=== PATIENT | female | born 1975 | race Asian ===

== ENCOUNTER 2016-07-05 10:55 | Emergency (ER) | payer BC ==
[~2016-07-05] VITALS: Ht 152.4 cm; Wt 51.3 kg
[2016-07-05] MEDS ORDERED: DIAZEPAM5 MG ORAL (11:14)
[2016-07-05] MEDS ORDERED: RAMIPRIL2.5 MG ORAL (11:14)
[2016-07-05] MEDS ORDERED: OXYCODONE-ACET1 EAC3 ORAL (11:14)
[2016-07-05] MEDS ORDERED: IBUPROFEN600 MG ORAL (11:14)
[2016-07-05] MEDS ORDERED: KETOROLAC TROME10 MG PO (11:14)
[2016-07-05] MEDS ORDERED: Ketorolac 30mg Inj IV ONE (11:30)
[2016-07-05] MEDS ORDERED: Morphine Sulfate 4mg/ml Inj IVP ONE ×2 (11:30→15:30)
[2016-07-05] MEDS ORDERED: Tubing IV Cassette IV ONE (11:44)
[2016-07-05 11:53] LABS: APPEARANCE,URINE CLEAR; KETONES,URINE NEGATIVE (NEGATIVE); LEUKOCYTE ESTERASE ,URINE NEGATIVE (NEGATIVE); NITRITE,URINE NEGATIVE (NEGATIVE); PH,URINE 8 (4.5-8.0); PROTEIN,URINE NEGATIVE (NEGATIVE); UROBILINOGEN,URINE NORMAL MG/DL (0.0-1.0)
[2016-07-05 11:54] LABS: BASOPHILS % (AUTO) 0.9 % (0.0-2.0); EOSINOPHILS % (AUTO) 6.6 % (0.0-3.0); LYMPHOCYTES % (AUTO) 21.6 % (20.0-45.0); MEAN CORPUSCULAR HEMOGLOBIN 30.7 PG (27.0-31.0); MEAN CORPUSCULAR HGB CONC 33.9 G/DL (32.0-36.0); MEAN CORPUSCULAR VOLUME 90 FL (80-99); MEAN PLATELET VOLUME 9.5 FL (6.5-10.1); MONOCYTES % (AUTO) 6.1 % (1.0-10.0); NEUTROPHILS % (AUTO) 64.8 % (45.0-75.0); PLATELET COUNT 283 K/UL (150-450); RED BLOOD COUNT 4.39 M/UL (4.20-5.40); RED CELL DISTRIBUTION WIDTH 10.8 % (11.6-14.8); WHITE BLOOD COUNT 10.1 K/UL (4.8-10.8)
[2016-07-05 12:07] LABS: INR 0.9 (0.9-1.1); PROTHROMBIN TIME 9.3 SEC (9.30-11.50)
[2016-07-05 12:12] LABS: ALANINE AMINOTRANSFERASE 25 U/L (3-33); ALBUMIN/GLOBULIN RATIO 1.5 (1.0-2.7); ANION GAP 16 (5-15); ASPARTATE AMINO TRANSFERASE 32 U/L (5-40); CALCIUM 9.7 mg/dL (8.6-10.2); CARBON DIOXIDE 27 mEQ/L (20-30); CHLORIDE 96 mEQ/L (98-107); CREATININE 0.7 mg/dL (0.5-0.9); GLOMERULAR FILTRATION RATE > 60 mL/min (>60); HEMOLYSIS 4; LIPASE 22 U/L (< 60); POTASSIUM 3.9 mEQ/L (3.4-4.9); SODIUM 139 mEQ/L (135-145); TOTAL PROTEIN 7.9 g/dL (6.6-8.7)
[2016-07-05] MEDS ORDERED: Oxycodone/Acetaminophen 5-325 ORAL ONE (12:15)
[2016-07-05 12:32] LABS: BACTERIA,URINE FEW /HPF; SQUAMOUS EPITHELIAL CELL,UR FEW /LPF (NONE/OCC); WBC,URINE 0-2 /HPF (0 - 2)
[2016-07-05 13:22] VITALS: BP 136/85
--- NOTE | 2016-07-05 15:21 | Emergency Room Report ---
History of Present Illness General Chief Complaint: Pain Source: Patient Present Illness HPI Patient had 3 episodes of embolization for uterine fibroids over the past 6 days. She has suprapubic pain at this time. She denies any fevers. She's been taking her medication (percocet, ketoralac) and stating not controlling the pain. Pain 7/10 aching pressure radiates to back, constant. She is also taking Augmentin 3 times a day. She denies any dysuria. No NVD, discharge, rashes, URI sy, cough, chest pain, DENT. 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 Nursing Documentation: PMH: Agreed, PSxH: Agreed Nursing Documentation-PMH Past Medical History: No History, Except For Hx Hypertension: Yes Review of Systems All Other Systems: negative except mentioned in HPI Physical Exam Vital Signs Date Time Temp Pulse Resp B/P Pulse Ox O2 Delivery O2 Flow Rate FiO2 07/05/16 11:06 98.2 78 16 154/105 99 Room Air Sp02 EP Interpretation: reviewed, normal General Appearance: well appearing, no apparent distress, GCS 15 Head: normocephalic Eyes: bilateral eye PERRL, bilateral eye normal inspection ENT: moist mucus membranes Neck: supple Respiratory: lungs clear, normal breath sounds Cardiovascular #1: regular rate, rhythm Cardiovascular #2: 2+ radial (R) Gastrointestinal: normal inspection, normal bowel sounds, no mass, non- distended, no guarding, no rebound, tenderness - supropubic Genitourinary: deferred - for ultrasound Musculoskeletal: back normal, gait/station normal, normal range of motion Neurologic: alert, oriented x3, grossly normal Psychiatric: mood/affect normal Skin: normal inspection, warm/dry Medical Decision Making Diagnostic Impression: Primary Impression: Pelvic pain Additional Impression: Post fibroid embolectomy ER Course Patient presents with pelvic pain post embolectomy for fibroids (3). Ddx: postoperative pain, UTI, infection, diverticulitis, ectopic amongst others. Urgent evaluation with labs, ultrasound and UA. Treatment with IV fluids, toradol, and morphine. Eval with negative labs. Ultrasound post embolectomy. No significant free fluid. Improved with analgesia and IV hydration. Discussed with Dr. Rodney. Feels stable for observation given negative w/u. Patient stable for outpatient observation and treatment. Laboratory Tests Test 07/05/16 11:33 White Blood Count 10.1 K/UL (4.8-10.8) Red Blood Count 4.39 M/UL (4.20-5.40) Hemoglobin 13.5 G/DL (12.0-16.0) Hematocrit 39.7 % (37.0-47.0) Mean Corpuscular Volume 90 FL (80-99) Mean Corpuscular Hemoglobin 30.7 PG (27.0-31.0) Mean Corpuscular Hemoglobin Concent 33.9 G/DL (32.0-36.0) Red Cell Distribution Width 10.8 % (11.6-14.8) L Platelet Count 283 K/UL (150-450) Mean Platelet Volume 9.5 FL (6.5-10.1) Neutrophils (%) (Auto) 64.8 % (45.0-75.0) Lymphocytes (%) (Auto) 21.6 % (20.0-45.0) Monocytes (%) (Auto) 6.1 % (1.0-10.0) Eosinophils (%) (Auto) 6.6 % (0.0-3.0) H Basophils (%) (Auto) 0.9 % (0.0-2.0) Prothrombin Time 9.3 SEC (9.30-11.50) Prothrombin Time INR 0.9 (0.9-1.1) PTT 26 SEC (23-33) Urine Color Pale yellow Urine Appearance Clear Urine pH 8 (4.5-8.0) Urine Specific [place] 1.010 (1.005-1.035) Urine Protein Negative (NEGATIVE) Urine Glucose (UA) Negative (NEGATIVE) Urine Ketones Negative (NEGATIVE) Urine Occult Blood 3+ (NEGATIVE) H Urine Nitrite Negative (NEGATIVE) Urine Bilirubin Negative (NEGATIVE) Urine Urobilinogen Normal MG/DL (0.0-1.0) Urine Leukocyte Esterase Negative (NEGATIVE) Urine RBC 5-10 /HPF (0 - 2) H Urine WBC 0-2 /HPF (0 - 2) Urine Squamous Epithelial Cells Few /LPF (NONE/OCC) Urine Bacteria Few /HPF (NONE) Urine HCG, Qualitative Negative Sodium Level 139 mEQ/L (135-145) Potassium Level 3.9 mEQ/L (3.4-4.9) Chloride Level 96 mEQ/L (98-107) L Carbon Dioxide Level 27 mEQ/L (20-30) Anion Gap 16 (5-15) H Blood Urea Nitrogen 6 mg/dL (7-23) L Creatinine 0.7 mg/dL (0.5-0.9) Estimate Glomerular Filtration Rate > 60 mL/min (>60) Glucose Level 104 mg/dL (74-106) Calcium Level 9.7 mg/dL (8.6-10.2) Total Bilirubin 0.3 mg/dL (0.0-1.2) Aspartate Amino Transferase (AST) 32 U/L (5-40) Alanine Aminotransferase (ALT) 25 U/L (3-33) Alkaline Phosphatase 43 U/L (35-104) Total Protein 7.9 g/dL (6.6-8.7) Albumin 4.8 g/dL (3.5-5.2) Globulin 3.1 g/dL Albumin/Globulin Ratio 1.5 (1.0-2.7) Lipase 22 U/L (< 60) CT/MRI/US Diagnostic Results CT/MRI/US Diagnostic Results : Imaging Test Ordered: pelvic ultrasound Impression post embolectomy, minimal free fluid IMPRESSION: Multi-fibroid uterus Minimal pelvic free fluid, nonspecific Bilateral ovarian hemorrhagic physiologic cysts suggestion of small left ovarian dermoid Last Vital Signs Date Time Temp Pulse Resp B/P Pulse Ox O2 Delivery O2 Flow Rate FiO2 07/05/16 16:07 98.0 07/05/16 16:04 67 14 142/88 97 Room Air Status: improved Disposition: HOME, SELF-CARE Condition: Improved Scripts Oxycodone/Acetaminophen 5-325* (PERCOCET 5-325 MG TABLET*) 1 Each Tablet 1 TAB ORAL Q4H Y for For Pain, #20 TAB may repeat X 1 if pain not controlled. Prov: Ramirez Shelby M.D. 07/05/16 Referrals: NON PHYSICIAN (PCP) Ramirez Shelby M.D. Jul 05, 2016 15:20
[2016-07-05] MEDS ORDERED: PERCOCET 5-3251 EACH ORAL (15:55)
[2016-07-05 16:04] VITALS: BP 142/88
--- NOTE | 2016-07-06 12:52 | Diagnostic Imaging Report ---
Indications: Pain, status post uterine fibroid embolization, LMP 06/25/16 Technique: Transabdominal and transvaginal real-time grayscale and duplex Doppler imaging of the pelvis was performed. Findings: Comparison: None Retroverted uterus measures 7.1 x 5.5 x 5.2cm. It demonstrates history heterogeneous myometrial echogenicity with multiple nodular foci of mixed echogenicity, largest 21 mm. The endometrial complex measures 3 mm in diameter. It is unremarkable in appearance without obvious focal abnormality. Cervix unremarkable. Normal free fluid is present in the cul-de-sac. Right ovary measures 2.2 x 2.9 x 2.4 cm. It contains a 2.2 cm circumscribed hypoechoic focus with low-level internal echoes, increased through transmission. Duplex Doppler imaging demonstrates normal blood flow. No extra-ovarian abnormality is seen. Left ovary measures 3.5 x 1.7 x 2.9 cm. It contains a 1.2 cm circumscribed lesion with a fluid fluid versus fluid debris level, as well as a 6 mm circumscribed echogenic lesion.. Duplex Doppler imaging demonstrates normal blood flow. No extra-ovarian abnormality is seen. IMPRESSION: Multi-fibroid uterus Minimal pelvic free fluid, nonspecific Bilateral ovarian hemorrhagic physiologic cysts suggestion of small left ovarian dermoid
== END 2016-07-05 16:11 | disposition home or self-care (01) ==
LOC: EMR 11:39
DX: R10.2 Pelvic and perineal pain (principal); Z98.890 Other specified postprocedural states; I10 Essential (primary) hypertension; F17.200 Nicotine dependence, unspecified, uncomplicated; Z88.2 Allergy status to sulfonamides
CPT/HCPCS: 36415; 76830; 76856; 80053; 81003; 81025; 83690; 85025; 85610; 85730; 96374; 96375; 99284; J1885; J2270; J2405